=== PATIENT | female | born 1950 | race African-American/Black ===

== ENCOUNTER 2018-05-31 11:15 | Emergency (ER) | payer OTHER ==
[~2018-05-31] VITALS: Ht 160 cm; Wt 61.2 kg
[2018-05-31] MEDS ORDERED: LOVASTATIN 20 M20 MG PO (11:52)
[2018-05-31] MEDS ORDERED: TRAMADOL 50 MG50 MG PO (12:44)
[2018-05-31 13:00] VITALS: BP 137/77
== END 2018-05-31 13:00 | disposition home or self-care (01) ==
LOC: ER 11:15
DX: S82.031A Displaced transverse fracture of right patella, initial encounter for closed fracture (principal); Z88.5 Allergy status to narcotic agent; W01.0XXA Fall on same level from slipping, tripping and stumbling without subsequent striking against object, initial encounter; Y92.094 Garage of other non-institutional residence as the place of occurrence of the external cause; Y93.89 Activity, other specified; Y99.8 Other external cause status

== ENCOUNTER 2019-12-15 18:26 | Emergency (ER) | payer MEDICARE ==
[~2019-12-15] VITALS: Ht 162.6 cm; Wt 62.1 kg
[~2019-12-15 18:26] MED LIST: LOVASTATIN 20 M20 MG PO; TRAMADOL 50 MG50 MG PO
[2019-12-15 20:30] LABS: ABSOLUTE NEUTROPHILS 7.5 thou/uL (1.4-8.2); BASOPHILS 0.5 % (0.0-2.0); EOSINOPHILS 1.7 % (0.0-3.0); HEMATOCRIT 33.4 % (37.0-47.0); HEMOGLOBIN 11.2 gm/dL (12.0-15.0); LYMPHOCYTES 19.7 % (24.0-44.0); MCH 29.9 pg (26.0-34.0); MCHC 33.5 g/dL (28.0-37.0); MCV 89.2 fL (80.0-100.0); MONOCYTES 7.1 % (1.0-8.0); PLATELET COUNT 278 thou/uL (150-400); RBC 3.74 mil/uL (4.20-5.00); RDW 13.2 % (10.5-14.5); WBC 10.6 thou/uL (4.0-11.0)
[2019-12-15 20:38] LABS: CALCIUM 8.9 mg/dL (8.5-10.1); CREATININE 1.3 mg/dL (0.6-1.0); POTASSIUM 3.9 mmol/L (3.5-5.1)
[2019-12-15 21:33] VITALS: BP 130/67
--- NOTE | 2019-12-16 08:00 | EKG ---
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
== END 2019-12-15 21:33 | disposition home or self-care (01) ==
LOC: ER 18:26
PROVIDERS: Emergency Medicine
DX: S82.842A Displaced bimalleolar fracture of left lower leg, initial encounter for closed fracture (principal); R55 Syncope and collapse; Z88.5 Allergy status to narcotic agent; Z79.899 Other long term (current) drug therapy; Z98.890 Other specified postprocedural states; W18.30XA Fall on same level, unspecified, initial encounter; Y93.89 Activity, other specified; Y92.89 Other specified places as the place of occurrence of the external cause; Y99.9 Unspecified external cause status